=== PATIENT | female | born 1950 | race Caucasian/White ===

== ENCOUNTER → 2016-11-25 | Day surgery (SDC) | payer OTHER ==
[2016-11-17 10:26] VITALS: Ht 157.5 cm; Wt 65.9 kg
[~2016-11-25] VITALS: Ht 157.5 cm; Wt 65.9 kg
[~2016-11-25] MED LIST: ACETAMINOPHEN/CODEINE 300/30MG TAB PO PRN; ASCO500T3 PO; ASPCH81X PO; ATROPINE SULFATE 0.1 MG/ML 5ML SYR IV PRN; BUPIVACAINE 0.5 % 5 MG/1 ML MPF 30ML VIAL ONE; CALC500C70 PO; CLINDAMYCIN 600 MG/54 ML D5W IV ONE; CLINDAMYCIN PHOS 150 MG/ML 2 ML VIAL IV SCH; DEXAMETHASONE SOD INJ 4 MG/ML VIAL ONE; ESTR0.5T3 PO; EpHEDrine SULFATE INJ 50 MG/ML AMP IV PRN; FENTANYL CITRATE INJ 50 MCG/1 ML 2 ML VIAL IV PRN; FENTANYL CITRATE INJ 50 MCG/1 ML 2 ML VIAL ONE; HYDROmorphone INJ 1 MG/ML SYR IV PRN; LACTATED RINGER'S 1000ML 1,000 ML IV SCH; LIDOCAINE HCL 2% 2 ML VIAL (20MG/ML) ONE; MELO15TA3 PO; METO25TA56 PO; MIDAZOLAM HCL 1 MG/ML 2ML VIAL ONE; MULT-506 PO; MoRPHine SULFATE 2 MG/ML CARP IV PRN; MoRPHine SULFATE 4 MG/ML 1 ML CARP\\VIAL IV PRN; ONDANSETRON INJ 2 MG/ML 2 ML VIAL IV PRN; ONDANSETRON INJ 2 MG/ML 2 ML VIAL ONE; OXYC-57 PO; PROPOFOL IV EMULSION 10 MG/ML 20 ML VIAL IV ONE; ROPIVACAINE 0.5% 5 MG/ML 30 ML VIAL ONE; SODIUM CHLORIDE 0.9% 1000ML 1,000 ML IV SCH
--- NOTE | 2016-11-25 09:29 | History & Physical Bridge Note ---
H&P Re-Evaluation Bridge Note: I have examined the patient, reviewed the History & Physical and in the interval since the performance of the History & Physical I have noted the following changes of clinical significance: No changes noted
--- NOTE | 2016-11-25 12:40 | [facility] Post Operative Brief Note ---
Immediate Operative Summary Operative Date Nov 25, 2016. Pre-Operative Diagnosis Left foot hallux valgus, 2nd toe hammertoe Post-Operative Diagnosis same Procedure(s) Performed distal chevron bunionectomy, hammertoe correction Surgeon Dr Albright Squeak Rattle And Leak Repairer Surgeon(s) Dr Charleen Castaneda Estimated Blood Loss 20 ML Findings bunion, hammertoe Specimens 0 Drains 0 Anesthesia popliteal block with LMA Complication(s) None Disposition Recovery Room / PACU
--- NOTE | 2016-11-25 12:44 | Discharge Instructions ---
Discharge Instructions Admission Reason for Admission: Left Foot Hallux Valgus Discharge Discharge Diagnosis / Problem: status left hallux valgus corrective osteotomy Discharge Goals Goal(s): Decrease discomfort, Improve function, Increase independence Activity Recommendations Activity Limitations: per Instructions/Follow-up section . Instructions / Follow-Up Instructions / Follow-Up DIET: * Resume previous diet. MEDICATIONS: * Please take your prescriptions as instructed at your pre-op appointment and/ or see medication discharge instructions listed above. * If concerns develop, call your physician's office at . SPECIAL CARE INSTRUCTIONS: * Can walk and do weight bearing as tolerated with the heel boot * Ice/Elevate as instructed. * Keep dressing clean, dry, intact. * Your surgical extremity may be discolored due to prepping agents used on the skin. A bluish-green tint is a normal variant and should not cause alarm. Call your doctor at [phone] if: * Temperature above 101 degrees * Pain not relieved by pain medicine ordered * There is increased drainage or redness from any incision * You have any unanswered questions, problems or concerns. FOLLOW UP VISIT: * If not already scheduled, please call the office at to schedule a follow-up appointment. * Follow up with Physician Event Specialist on 12/01/2016 at 1pm * Follow up with Dr. Albright on 12/08/2016 at 12 pm Current Hospital Diet Patient's current hospital diet: Discharge Diet Recommended Diet: Regular Diet Pending Studies Studies pending at discharge: no Medical Emergencies . Who to Call and When: Medical Emergencies: If at any time you feel your situation is an emergency, please call 911 immediately. . Non-Emergent Contact Non-Emergency issues call your: Surgeon Call Non-Emergent contact if: you have a fever, your pain is not controlled, wound has increased drainage . "Provider Documentation" section prepared by Ramiro Pearson. VTE Core Measure Inpt VTE Proph given/why not?: Treatment not indicated
--- NOTE | 2016-11-25 12:49 | [facility] Operative Report ---
Operative Report Operative Date Nov 25, 2016. Pre-Operative Diagnosis Left foot hallux valgus, 2nd toe hammertoe Post-Operative Diagnosis same Procedure(s) Performed distal chevron bunionectomy, hammertoe correction Surgeon Dr Albright Community Living Coach Surgeon(s) Dr Charleen Castaneda Estimated Blood Loss 20 ML Findings Left foot hallux valgus, 2nd toe hammertoe Specimens 0 Complication(s) None Disposition PCU I attest to the content of the Intraoperative Record and any orders documented therein. Any exceptions are noted below.
--- NOTE | 2016-11-25 13:29 | Anesthesia Progress Nt - [facility] ---
Anesthesia Post Op Note Date & Time Nov 25, 2016 at 13:28 Vital Signs Pain Intensity: 0 Vital Signs Past 12 Hours Date Time Temp Pulse Resp B/P Pulse Ox O2 Delivery O2 Flow Rate FiO2 11/25/16 13:19 36.6 87 17 116/68 95 Room Air 11/25/16 13:03 105/57 11/25/16 13:01 80 12 11/25/16 13:01 81 12 100 11/25/16 12:58 107/57 11/25/16 12:56 80 12 11/25/16 12:56 81 12 100 11/25/16 12:53 105/60 11/25/16 12:51 81 12 100 11/25/16 12:51 80 12 11/25/16 12:48 107/60 11/25/16 12:46 81 12 99 11/25/16 12:46 81 12 11/25/16 12:43 108/54 11/25/16 12:41 79 11 11/25/16 12:41 80 11 99 11/25/16 12:38 113/51 11/25/16 12:36 78 8 98 11/25/16 12:36 78 8 11/25/16 12:33 119/67 11/25/16 12:32 36.2 92 12 119/72 100 Diffusion Mask 6 11/25/16 12:31 91 11/25/16 12:31 91 119/72 100 11/25/16 09:41 0 11/25/16 09:41 0 11/25/16 09:40 14 11/25/16 09:40 68 16 100 11/25/16 09:38 127/67 11/25/16 09:35 69 14 11/25/16 09:35 68 14 98 11/25/16 09:34 130/77 11/25/16 09:30 63 9 11/25/16 09:30 63 9 160/83 100 11/25/16 09:02 36.7 65 14 144/62 100 Room Air Notes Mental Status: alert / awake / arousable, participated in evaluation Pt Amnestic to Procedure: Yes Nausea / Vomiting: adequately controlled Pain: adequately controlled Airway Patency, RR, SpO2: stable & adequate BP & HR: stable & adequate Hydration State: stable & adequate Anesthetic Complications: no major complications apparent
[2016-11-25 13:45] VITALS: TEMP 36.6
--- NOTE | 2016-11-25 13:55 | OPERATIVE REPORT ---
DATE OF OPERATION: 11/25/2016 PREOPERATIVE DIAGNOSIS: Left foot bunion with second hammertoe. POSTOPERATIVE DIAGNOSIS: Same. PROCEDURE PERFORMED: Distal Chevron bunionectomy and correction of second hammertoe using a DuVries condylectomy and metatarsophalangeal joint capsulotomy. SURGEON: Dr. Albright. LINUX [employer] ADMINISTRATOR: Ramiro Villaseñor, fellow. No PA available. ANESTHESIA: Popliteal block, laryngeal mask. INDICATIONS FOR THE PROCEDURE: The patient is a 66-year-old female with symptomatic bunion refractory to nonsurgical methods of management. She elected to have surgery completed and also get her second hammertoe corrected. The bunion interferes with shoewear and is painful. The pain is located over the prominent medial eminence. Preoperative templating and evaluation has been done. She has an ADIS of 13, hallux valgus angle of 20, distal metatarsal articular angle of approximately 19. Her hallux valgus interphalangeus angle is 10. The plan is for correction of her second hammertoe and a distal Chevron bunionectomy with correction of the DMAA if necessary. OPERATION AND FINDINGS: PROCEDURE IN DETAIL: Informed consent was obtained. The patient identified as Radha Todd. She identified the left foot as the operative site. I marked it with my initials. A preop surgical time out was performed. A preop dose of IV antibiotics was given. She was taken to the operating room, positioned supine on the operating room table. Tourniquet was applied to the left distal thigh. The foot was examined and found to have a rigid hammertoe with a slight extension deformity at the MTP joint, but not to the level that I would call it a claw toe. She had a mild to moderate bunion deformity with a prominent medial eminence. She had full good movement of the metatarsophalangeal joint. The left leg was prepped and draped in usual sterile fashion. DVT prophylaxis intraoperatively with foot pump, postoperatively with early mobility. Fluoroscopic guidance was utilized throughout the procedure. She had a laryngeal mask anesthetic and a popliteal block via anesthesia. The limb was exsanguinated with the Esmarch, tourniquet inflated to 225 mmHg. A medial incision was made centered over the medial eminence and extending a slight bit more proximal. Full-thickness skin flap was identified. The dorsomedial cutaneous nerve was identified, dissected off of the capsule and retracted dorsalward and protected throughout the surgery. The capsule was exposed plantarward. A distally and plantarly based L-shaped capsulotomy was performed. A dorsal and proximal cuff of tissue were preserved for later repair. The medial eminence was resected at the level of the sagittal sulcus and parallel with the medial border of the foot. The center of the metatarsal head was then identified and a 30 degree Chevron osteotomy was marked out in line with the shaft of the metatarsal. The osteotomy was constructed so that its limbs exited proximal to the capsular attachment and proximal to the sesamoids. The Chevron cut was then made carefully with care taken to avoid overpenetration using an oscillating saw. I then used a [place] to assess mobility and to ensure that the osteotomy was released laterally. After obtaining adequate mobility a towel clamp was used displace the metatarsal medial and then the capital fragment lateral. This was provisionally pinned into place. I was not initially satisfied with the degree of correcting being only about 2 mm. I then undid the fixation. I also noted the lateral inclination of the articular surface. I went ahead and cut a 1-2 mm wedge off of the dorsal and plantar aspects of the proximal fragment. I then re-reduced the capital fragment displacing it 4 mm medially and pinned it in place. Prior to this, I had amputated the medial eminence at the 4 mm lizbeth so when it was flush I had the desired correction. The pin could be seen extending plantarward and this was backed up until it was out of the joint. Stability was excellent. The pin was placed from anterior, lateral, and proximal to plantarward, distal and medial. Attention was turned to the hammertoe. A longitudinal incision was made over the PIP joint and the extensor mechanism was split full thickness with the skin. This was followed by a dorsal capsulotomy and resection of the collateral ligaments at the PIP joint. The PIP joint was flexed and the condyles were resected just proximal to the flare. Trimming was performed to ensure a smooth surface. I then ran a pin from proximal to distal, out the tip and then in a retrograde fashion back up into the proximal phalanx. This pin was adjusted x2. There may have even been a slight bit of flexion at the PIP joint, but the toe tended to extend above the other toes even with the foot in a simulated weightbearing position. The pin position otherwise was adequate. The incision was extended proximally to the MTP joint. The extensor tendon was lengthened in a step cut fashion. A dorsal capsulotomy was performed followed by release of the collateral ligaments. This allowed appropriate alignment of the toe which was prevented by a tight MTP joint dorsally. The MTP joint was aligned and the toe was positioned neutrally, parallel with the other toes in a simulated weightbearing position and the pin was driven across the MTP joint which was confirmed visually and radiographically. The tourniquet was let down and meticulous hemostasis was performed, copious irrigation was performed. The pins were cut outside the skin, Jurgan balls were applied, relaxing incision was made for the most proximal pin which was then stitched closed. The second toe incision was closed with full thickness horizontal mattress 3-0 nylon sutures, incorporating the extensor mechanism distally. Proximally the extensor tendon was repaired in a lengthened fashion with 2-0 Vicryl and the skin was closed with 3-0 nylon. There was capillary refill intact to the second toe. There was punctate bleeding in the capital fragment. I took a little bit of bone graft and applied it to the medial portion of the osteotomy and impacted the bone graft in that area. A second pin was added for stability going from distal and anterior to proximal, medial and posterior. The position of the hardware was confirmed in multiple biplanar fluoroscopy. The capital fragment was stable. This pin was out located outside of the joint going in through the dorsal portion of the distal Chevron. I then repaired the capsule in a tension-free fashion with the toe slightly abducted. I was able to repair to a dorsal and proximal vernon remaining capsule for an excellent repair. The capsule was imbricated and shortened by several millimeters to aid in correction of the deformity. The remainder of the dorsal and proximal capsule were repaired, all done using 0 Vicryl. The toes had excellent position with correction of the bunion and alignment in flexion and extension in the simulated weightbearing position. Clinical Aide fluoroscopic images were obtained. Only the skin was closed with interrupted horizontal mattress 3-0 nylon sutures protecting the nerves. The leg was cleaned with wet and dry sponges. Meticulous hemostasis had been performed. Xeroform was applied, fluffs between the toes and a bunion wrap to correct any pronation deformity was performed. The patient was then placed into a weight-bearing heel boot with a protective anterior bar. The patient was then awakened from anesthesia without difficulty and taken to recovery room in stable condition. There were no specimens or complications. Counts were correct at the end of case. Blood loss was 20 mL. At the conclusion of the operation, I spoke to patient's and informed him of my findings. Detailed postoperative instructions were given. She will follow up early next week for a wound check and dressing change. She can weightbear as tolerated on her heel. DVT prophylaxis with early mobility. I attest to the content of the Intraoperative Record and any orders documented therein. Any exceptio ns are noted below.
[2016-11-25 14:23] VITALS: BP 103/59; PULSE 78; O2SAT 96
== END | disposition home or self-care (01) ==
LOC: X.SURG 08:25
PROVIDERS: ATTEND Physical Medicine & Rehabilitation Sports Medicine
DX: M21.612 Bunion of left foot (principal); M20.42 Other hammer toe(s) (acquired), left foot; M20.12 Hallux valgus (acquired), left foot; M17.9 Osteoarthritis of knee, unspecified; Z98.51 Tubal ligation status; Z90.49 Acquired absence of other specified parts of digestive tract; Z90.710 Acquired absence of both cervix and uterus

== ENCOUNTER → 2016-12-08 | Outpatient (CLI) | payer OTHER ==
[~2016-12-08] MED LIST changes: -ACETAMINOPHEN/CODEINE 300/30MG TAB PO PRN; -ATROPINE SULFATE 0.1 MG/ML 5ML SYR IV PRN; -BUPIVACAINE 0.5 % 5 MG/1 ML MPF 30ML VIAL ONE; -CLINDAMYCIN 600 MG/54 ML D5W IV ONE; -CLINDAMYCIN PHOS 150 MG/ML 2 ML VIAL IV SCH; -DEXAMETHASONE SOD INJ 4 MG/ML VIAL ONE; -EpHEDrine SULFATE INJ 50 MG/ML AMP IV PRN; -FENTANYL CITRATE INJ 50 MCG/1 ML 2 ML VIAL IV PRN; -FENTANYL CITRATE INJ 50 MCG/1 ML 2 ML VIAL ONE; -HYDROmorphone INJ 1 MG/ML SYR IV PRN; -LACTATED RINGER'S 1000ML 1,000 ML IV SCH; -LIDOCAINE HCL 2% 2 ML VIAL (20MG/ML) ONE; -MIDAZOLAM HCL 1 MG/ML 2ML VIAL ONE; -MoRPHine SULFATE 2 MG/ML CARP IV PRN; -MoRPHine SULFATE 4 MG/ML 1 ML CARP\\VIAL IV PRN; -ONDANSETRON INJ 2 MG/ML 2 ML VIAL IV PRN; -ONDANSETRON INJ 2 MG/ML 2 ML VIAL ONE; -PROPOFOL IV EMULSION 10 MG/ML 20 ML VIAL IV ONE; -ROPIVACAINE 0.5% 5 MG/ML 30 ML VIAL ONE; -SODIUM CHLORIDE 0.9% 1000ML 1,000 ML IV SCH
== END | disposition home or self-care (01) ==
LOC: C.RDSM 12:37
PROVIDERS: ATTEND Physical Medicine & Rehabilitation Sports Medicine
DX: M20.12 Hallux valgus (acquired), left foot (principal)

== ENCOUNTER → 2016-12-22 | Outpatient (CLI) | payer OTHER | END | disposition home or self-care (01) | LOC: C.RDSM 13:38 | PROVIDERS: ATTEND Physical Medicine & Rehabilitation Sports Medicine | DX: M20.12 Hallux valgus (acquired), left foot (principal) ==

== ENCOUNTER → 2017-01-05 | Outpatient (CLI) | payer OTHER ==
[~2017-01-05] MED LIST changes: -OXYC-57 PO
== END | disposition home or self-care (01) ==
LOC: C.RDSM 13:00
PROVIDERS: ATTEND Physical Medicine & Rehabilitation Sports Medicine
DX: M20.12 Hallux valgus (acquired), left foot (principal)

== ENCOUNTER → 2017-02-15 | Outpatient (CLI) | payer OTHER | END | disposition home or self-care (01) | LOC: C.RDSM 15:00 | PROVIDERS: ATTEND Physical Medicine & Rehabilitation Sports Medicine | DX: M20.42 Other hammer toe(s) (acquired), left foot (principal); M20.12 Hallux valgus (acquired), left foot; R52 Pain, unspecified ==

== ENCOUNTER → 2017-05-17 | Outpatient (CLI) | payer OTHER | END | disposition home or self-care (01) | LOC: C.RDSM 13:49 | PROVIDERS: ATTEND Physical Medicine & Rehabilitation Sports Medicine | DX: M20.42 Other hammer toe(s) (acquired), left foot (principal) ==

== ENCOUNTER → 2018-06-22 | Outpatient (CLI) | payer OTHER | END | disposition home or self-care (01) | LOC: C.RDSM 11:20 | PROVIDERS: ATTEND Orthopaedic Surgery | DX: M79.644 Pain in right finger(s) (principal) ==